=== PATIENT | male | born 1985 | race Caucasian/White ===

== ENCOUNTER 2018-01-03 08:00 | Day surgery (SDC) | payer OTHER ==
[2018-01-03] MEDS ORDERED: Ringers Lactate 1,000 ML IV ONE (08:46)
[2018-01-03] MEDS ORDERED: CEFAZOLIN/SWI 1gm 1 GM/10 ML SYR ONE (08:46)
[2018-01-03] MEDS ORDERED: PROPOFOL 200 MG/20 ML VIAL IV ONE (09:21)
[2018-01-03] MEDS ORDERED: MIDAZOLAM HCL 2 MG/2 ML INJ ONE (09:21)
[2018-01-03] MEDS ORDERED: LIDOCAINE 2% MPF 5 ML VIAL ONE ×2 (09:22→09:46)
[2018-01-03] MEDS ORDERED: FENTANYL CITR 100 MCG/2 ML ONE (09:23)
[2018-01-03] MEDS ORDERED: ONDANSETRON 4 MG/2 ML VIAL ONE (09:23)
[2018-01-03] MEDS ORDERED: NA CHLORIDE 0.9% 1,000 ML ONE (09:27)
[2018-01-03] MEDS ORDERED: Mastisol Adhesive Liq ONE (09:28)
[2018-01-03] MEDS: MEPERIDINE HCL 50 MG/ML AMP ONE ×2 (11:02→11:10)
[2018-01-03] MEDS ORDERED: HYDROCODONE/APAP 10/325 TAB ONE (12:21)
--- NOTE | 2018-01-07 09:04 | OP ---
Surgeon: Miguelito Prince MD [employer]: Geovany. Preoperative Diagnosis: Laceration of the right little finger. Postoperative Diagnosis: Laceration of the right little finger with laceration of the ulnar digital nerve, distal abductor digiti quinti, and lateral capsule. Procedure Performed: Microdissection repair of ulnar digital artery and ulnar digital nerve. Repair of the abductor digiti quinti and the capsule. Anesthesia: General. Procedure In Detail: After satisfactory induction of general anesthesia, the hand was prepped with Betadine scrub, Betadine paint, dry sterile drapes applied in the usual manner. Arm was elevated, exsanguinated with an Esmarch, tourniquet was inflated to 250 mmHg. Hand placed on [place] table, proximal and distal extension. The palmar incision was made over the fifth metacarpal . Dissection proceeded down where the ulnar digital artery digital artery and digital nerve were transected the laceration to the capsule of the joint on the ulnar side as well as the abductor digiti quinti. The wound was irrigated with dilute Betadine solution and then the capsule repaired with 4-0 Mersilene, the tendon repaired with 4-0 Mersilene and the muscle of abductor digiti quinti repaired with 4 Vicryl. Attention was then turned to the nerve and artery after a loupe dissection, the microscope was brought in the field . the artery was proximally clamped and the tissue removed and then irrigated with heparinized saline. Repair was done [id number] sutures were placed at the proximal clamp and then the clamp was released. nerve ends were freshened with microdissection and a transverse cut with micro scissors and repaired with 9-0 nylon suture. Tourniquet released. There was a flow through the distal portion of the repair, and the wounds closed with 4-0 Prolene in vertical mattress simple sutures or horizantal mattress. Dressing of Xeroform, 2 inch Tori Kerlix the patient tolerated the procedure well and returned to Recovery. COREEN/ALMA Voice ID: [id number] Report ID: [id number] SONAL
== END 2018-01-03 12:45 | disposition home or self-care (01) ==
LOC: OR 08:00
PROVIDERS: ATTEND Specialist
PROC: 01Q40ZZ Repair Ulnar Nerve, Open Approach (ICD-10-PCS; 2018-01-03)
PROC: 0KQC0ZZ Repair Right Hand Muscle, Open Approach (ICD-10-PCS; 2018-01-03)
PROC: 03Q90ZZ Repair Right Ulnar Artery, Open Approach (ICD-10-PCS; principal; 2018-01-03 09:00)
DX: S61.216A Laceration without foreign body of right little finger without damage to nail, initial encounter (principal); S64.496A Injury of digital nerve of right little finger, initial encounter; S66.921A Laceration of unspecified muscle, fascia and tendon at wrist and hand level, right hand, initial encounter
CPT/HCPCS: J0690; J2175; J2250; J2405; J3010; J7030